=== PATIENT | female | born 1990 | race Caucasian/White ===

== ENCOUNTER 2018-02-20 05:13 | Inpatient (IN) ==
[2018-02-20] MEDS ORDERED: OXYTOCIN DRIP 30 UNIT/500 ML ML IV PRN (07:04)
[2018-02-20] MEDS ORDERED: D5LR 1,000 ML IV PRN (07:04)
[2018-02-20] MEDS ORDERED: LR 1,000 ML IV PRN (07:04)
[2018-02-20] MEDS ORDERED: MAG-AL + SIM ORAL LIQUID 30ml PO PRN (07:04)
[2018-02-20] MEDS ORDERED: METHYLERGONOVINE 0.2 MG/ML INJECTION IM PRN (07:04)
[2018-02-20] MEDS ORDERED: CALCIUM CARBONATE Chewable 500mg TABLET PO PRN (07:04)
[2018-02-20] MEDS ORDERED: LIDOCAINE 1% (10mg/ml) 2mL INJ PF SDV ID PRN (07:04)
[2018-02-20 07:59] VITALS: BMI 32.1
--- NOTE | 2018-02-20 08:13 | Anesthesia Preoperative Report ---
Anesthesia Epidural/Spinal Rec - Date and Time Date: 02/20/18 Preoperative Diagnosis: induction Procedure: Labor Epidural Plan: Epidural - Vital Signs Vital Signs: Temperature 98.2 F 02/20/18 07:56 Pulse Rate 109 H 02/20/18 07:56 Respiratory Rate 16 02/20/18 07:56 Blood Pressure 140/82 H 02/20/18 07:56 Pulse Oximetry 98 02/20/18 07:56 /Para: P:2 - Medictaions & Allergies Inpatient Medications: Current Medications Acetaminophen (Tylenol) 500 - 1,000 mg PO Q4H PRN PRN Reason: Pain Al Hydroxide/Mg Hydroxide (Maalox Plus) 30 ml PO Q3H PRN PRN Reason: Indigestion Calcium Carbonate (Tums) 500 - 1,000 mg PO Q2H PRN PRN Reason: Indigestion Carboprost Tromethamine (Hemabate) 250 mcg IM O PRN PRN Reason: .Downtime Dextrose/Lactated Ringer's (Dextrose 5%-Lactated Ringers) 1,000 mls @ 125 mls/ hr IV .Q8H PRN PRN Reason: Labor Lactated Ringer's (Lactated Ringers) 1,000 mls @ 999 mls/hr IV .Q1H1M PRN Oxytocin (Pitocin Drip) 30 unit in 500 mls @ 2 mls/hr IV .Q24H PRN; Protocol PRN Reason: Induction/Augmentation Lidocaine HCl (Xylocaine-Mpf 1% Vial) 0.2 mg ID O PRN PRN Reason: IV Start Methylergonovine Maleate (Methergine) 0.2 mg IM O PRN Misoprostol (Cytotec) 800 mcg KS ONCE PRN Allergies/Adverse Reactions: Allergies Allergy/AdvReac Type Severity Reaction Status Date / Time permethrin Allergy Rash Verified 01/30/18 10:41 - Home Medications Home Medications: Home Medications Medication Instructions Recorded Confirmed Type Vits W-Ca,Fe,Fa(<1MG) 1 tab PO DAILY #0 02/10/13 History ( #2) Acetaminophen [Tylenol] 1 tab PO Q4HPRN #30 tab 08/14/16 History Qcvzgn-Ljxmyuff-Xaiv 50-300-40 Q6HR 01/30/18 History Colace 01/30/18 History Ferrous Sulfate DAILY 01/30/18 History - Medical History Other History: Reports: Now - Surgical History HEENT Surgeries: Reports: Oral Surgery (wisdom) GI Surgery/Treatments: Reports: Cholecystectomy (2011), Other (stomach scope) Musculoskeletal Surgery/Tx: Reports: Other (shoulder scope) Reproductive Surgery/Treatment: DENIES: Section Anesthesia Reactions: None Hx Family Anesthesia Reaction: No History of Motion Sickness: No - Social History Smoking Status: Never smoker Second Hand Exposure: No Substance Use Type: does not use Alcohol Intake Frequency: does not drink Hx Chewing Tobacco Use: No - Pertinent Findings Lab Data: CBC and BMP 02/20/18 07:17 EKG Rhythm: Normal Sinus Rhythm - Physical Exam Respiratory Exam: lungs clear Cardiovascular Exam: regular rate and rhythm, no murmur - Airway Assessment Mallampati Score: II TMD: 3 Fingerbreadths Neck Extension: good Overall Assessment: no airway concerns - ASA ASA Score: 2 - Discussion Discussion: Discussed risks/options/alternatives of anesthesia and questions answered. Patient consents. Nursing pain assessment noted. Anesthesia Discussion: spouse Attestation Statement: Prior to the delivery of any anesthetic medication, I examined the patient, developed the plan, obtained the patient's consent and discussed the risk and benefits of the procedure with the patient/guardian.
[2018-02-20] MEDS ORDERED: ONDANSETRON 4 MG/2 ML INJECTION IVP PRN (11:14)
[2018-02-20] MEDS ORDERED: NALOXONE 0.4 MG/ML INJECTION IVP PRN (11:14)
[2018-02-20] MEDS ORDERED: DiphenhydrAMINE 50 MG/ML INJECTION IVP PRN (11:14)
[2018-02-20] MEDS ORDERED: ROPIVACAINE 1% 10MG/ML INJ 200 MG, SUFentanil 50 MCG in NS 100 ML EPI PRN (11:14)
[2018-02-20] MEDS ORDERED: LIDOCAINE 2%/EPI 1:200,000 20ml SDV PF ONE (16:31)
[2018-02-20] MEDS ORDERED: TRANEXAMIC ACID 1,000 MG in NS 100 ML IV ONE (18:11)
[2018-02-20] MEDS: CARBOPROST 250 MCG/ML INJECTION IM PRN ×2 (19:08→19:29)
[2018-02-20] MEDS ORDERED: OXYTOCIN DRIP 30 UNIT/500 ML ML IV SCH (20:00)
[2018-02-20] MEDS ORDERED: HYDROCORTISONE 2.5% CREAM 30gm RECTALLY PRN (20:00)
[2018-02-20] MEDS ORDERED: DiphenhydrAMINE 25 MG CAPSULE PO PRN (20:00)
[2018-02-20] MEDS ORDERED: DIPHENOXYLATE /ATROPINE TABLET PO PRN (20:22)
[2018-02-20] MEDS: IBUPROFEN 800 MG TABLET PO PRN (21:45)
[2018-02-20] MEDS: HYDROCODONE/APAP 5mg/325mg TABLET PO PRN (22:17)
[2018-02-21] MEDS: HYDROCODONE/APAP 5mg/325mg TABLET PO PRN ×3 (00:55→10:15)
[2018-02-21] MEDS: IBUPROFEN 800 MG TABLET PO PRN ×3 (04:50→21:02)
--- NOTE | 2018-02-21 07:39 | OB/GYN Progress Note ---
OB-PP Progress Note - General PPD1 Maternal Group B Strep: Negative Maternal Rubella Status: Immune - Subjective Date: 02/21/18 Lochia: Minimal (Small lochia in the collection bag from the Bakri.) Pain: controlled Voiding: musa still in place Nausea or Vomiting Present: No - Objective Vital Signs: Last Vital Signs Temp 98.6 F 02/21/18 04:06 Pulse 94 02/21/18 04:06 Resp 16 02/21/18 04:06 BP 117/67 02/21/18 04:06 Pulse Ox 97 02/21/18 04:06 Urine Output: good General: alert and oriented Abdomen: fundus firm, non-tender Extremities: non-tender Laboratory: Laboratory Results - last 24 hr 02/20/18 02/20/18 07:17 23:24 WBC 16.7 H D RBC 3.24 L Hgb 9.0 L D Hct 28.9 L D MCV 89.2 MCH 27.8 MCHC 31.1 RDW Std Deviation 43.1 Plt Count 190 MPV 10.7 Blood Type A Positive Antibody Screen Negative Crossmatch (AHG) See Detail - Assessment Assessment: , Anemia, PP Hemorrhage (We just removed 50 mL of fluid from the Bakri. If she remains stable we will remove the rest of the fluid in 1 hour. ) - Plan Plan: iron
[2018-02-21] MEDS: IRON POLYSACCHARIDE COMPLEX 150 MG CAPSULE PO SCH (08:41)
--- NOTE | 2018-02-21 12:01 | Labor and Delivery Note ---
DATE OF DELIVERY 02/20/2018 Angelique is a 27-year-old 4, para 2 at 39 weeks 2 days gestational age who was brought in for a Pitocin induction. Her membranes were ruptured artificially returning clear fluids. She received an epidural. She intermittently had late decelerations off and on throughout the day so her Pitocin was adjusted accordingly. An IUPC was placed to help titrate Pitocin. However, the baby ultimately did not tolerate any Pitocin and we did not have adequate contractions most of the day. However, she was able to still change her cervix slow and steadily. When she got to complete, she only had to push for a few contractions and delivered the head in the CHIDI position. We encountered a shoulder dystocia. We put her in the Osmani position and suprapubic pressure was placed. She was also instructed to stop pushing. I put posterior pressure on the anterior shoulder to try to rotate the baby counterclockwise but this was not successful. I next attempted to deliver the posterior arm but the arm was straight at the baby's side, so I was not able to flex and deliver that either. I then rotated the baby counterclockwise so the left shoulder was anterior and then it delivered easily at that point. There was a tight nuchal cord. I attempted to clamp it but the body delivered before I had a chance. The baby was stunned at delivery, but she had a good heart rate and tone. Once she started crying she was placed on mom's abdomen. The placenta delivered spontaneously. There were no lacerations. Due to her history of hemorrhage, she was started on tranexamic acid after the cord was clamped. Again we encountered steady bleeding. The endometrial cavity had no retained tissue. The external fundus felt firm but the internal endometrial cavity was atonic and filling up with clots. These were removed and the uterus was massaged down but this happened repeatedly over the course of the resuscitation. She received a dose of Hemabate and 800 mcg of Cytotec. Approximately 20 minutes later, she received a second dose of Hemabate. Her Sr bag was emptied so we could track urine output. She was typed and crossed and a second IV site was placed. Anesthesia was called to help manage fluids. I finally placed a Bakri balloon inside the uterus and it was filled with 150 mL of fluid. This helped to slow her bleeding down. The balloon was starting to come out with vomiting and coughing so a vaginal pack was placed to keep the Bakri balloon in place. She never became hypotensive but her pulse increased into the 120s and 130s. We watched her for a while and her lochia remained small with the Bakri balloon in place. I went to do paperwork and returned, and she was still doing well. 30 minutes after the Sr catheter had been emptied, she had another 300 mL of urine in the bag, so I felt like we were doing well from a fluid standpoint. The delivery was discussed with the family and their questions were answered. CAMPOS
--- NOTE | 2018-02-21 12:14 | Anesthesia Postoperative Note ---
- Date and Time Date: 02/21/18 Time: 12:09 - Status Patient Participated in Evaluation: Patient Participated in Person Vital Signs: Temperature 98.6 F 02/21/18 04:06 Pulse Rate 94 02/21/18 04:06 Respiratory Rate 16 02/21/18 04:06 Blood Pressure 117/67 02/21/18 04:06 Pulse Oximetry 97 02/21/18 04:06 Respiratory Function: Airway Patent, Regular Respirations Cardiovascular Function: Regular Pulse Mental Status: Alert and Oriented Pain Intensity: 0 Hydration: Taking PO Fluids Complications During Recover: None Apparent Post Anesthesia Care Notes: ambulatory without problems - Follow-Up Instructions Instructions: Per Surgeon
[2018-02-21] MEDS: DOCUSATE CALCIUM 240 MG CAPSULE PO SCH (13:05)
[2018-02-21] MEDS: ACETAMINOPHEN 500 MG TABLET PO PRN (17:59)
[2018-02-22] MEDS: ACETAMINOPHEN 500 MG TABLET PO PRN (00:07)
[2018-02-22 03:42] VITALS: BP 125/78; PULSE 98; RESP 18; TEMP 98; O2SAT 98
--- NOTE | 2018-02-22 08:15 | OB/GYN Progress Note ---
OB-PP Progress Note - General PPD2 Maternal Group B Strep: Negative Maternal Rubella Status: Immune - Subjective Date: 02/22/18 Lochia: Minimal Pain: controlled (using Ibuprofen and doing well. ) Voiding: voiding Nausea or Vomiting Present: No - Objective Vital Signs: Last Vital Signs Temp 98.0 F 02/22/18 03:41 Pulse 98 02/22/18 03:41 Resp 18 02/22/18 03:41 BP 125/78 02/22/18 03:41 Pulse Ox 98 02/22/18 03:41 Urine Output: good General: alert and oriented Abdomen: fundus firm Extremities: non-tender - Assessment Assessment: - Plan Plan: routine care, discharge home
[2018-02-22] MEDS: DOCUSATE CALCIUM 240 MG CAPSULE PO SCH (08:21)
[2018-02-22] MEDS: IBUPROFEN 800 MG TABLET PO PRN (08:21)
[2018-02-22] MEDS: IRON POLYSACCHARIDE COMPLEX 150 MG CAPSULE PO SCH (08:21)
== END 2018-02-22 09:50 | disposition home or self-care (01) | DRG 768 ==
LOC: MC 06:56
PROVIDERS: ADMIT Obstetrics & Gynecology; ATTEND Obstetrics & Gynecology